=== PATIENT | female | born 1955 | race Caucasian/White ===

== ENCOUNTER 2017-09-24 07:26 | Emergency (ER) | payer OTHER ==
[~2017-09-24] VITALS: Ht 165.1 cm; Wt 104.3 kg
[2017-09-24] MEDS ORDERED: NORCO 5-325 TA1 EACH PO (08:35)
[2017-09-24] MEDS ORDERED: TORADOL 10 MG T10 MG PO (08:35)
[2017-09-24] MEDS ORDERED: ZESTRIL5 MG PO (10:07)
[2017-09-24 10:11] VITALS: BP 131/102
== END 2017-09-24 10:13 | disposition home or self-care (01) ==
LOC: M.ERS 07:26
DX: S83.91XA Sprain of unspecified site of right knee, initial encounter (principal); I10 Essential (primary) hypertension; X58.XXXA Exposure to other specified factors, initial encounter; Y93.89 Activity, other specified; Y92.89 Other specified places as the place of occurrence of the external cause; Y99.8 Other external cause status